=== PATIENT | female | born 1980 | race Caucasian/White ===

== ENCOUNTER → 2020-09-15 13:53 | Outpatient (CLI) | payer MEDICAID, SELFPAY ==
[2020-09-15 15:04] LABS: Absolute Lymphocyte Count 2.62 X10^3/uL (0.83-4.51); Absolute Neutrophil Count 4.5 X10^3/uL (2.0-7.7); Basophil# 0.06 X10^3/uL; Basophil% 0.7 % (0-1); Eosinophil# 0.26 X10^3/uL; Eosinophils% 3.1 % (0-5); Hematocrit 32.8 % (37-47); Hemoglobin 10.2 g/dL (12.0-15.0); Lymphocyte # 2.62 X10^3/ul (4.0); Lymphocyte % 31.4 % (19-41); Mean Corp Hgb Conc 31.1 g/dL (32-36); Mean Corpuscular Hgb 27.6 pg (27.0-32.0); Mean Corpuscular Volume 88.9 fL (81-99); Mean Platelet Vol. 9.3 fl (6.2-12.0); Monocyte# 0.83 X10^3/uL; NRBC Flagged by Analyzer 0 % (0-5); Neutrophil # 4.53 X10^3/uL (2.7-7.7); Neutrophil % 54.3 % (47-70); Platelet Count 423 K/mm3 (150-450); RBC Distribution Width CV 14.6 % (11.6-14.6); Red Blood Count 3.69 M/mm3 (4.2-5.4); White Blood Count 8.3 K/mm3 (4.4-11.0)
[2020-09-15 15:15] LABS: Creatinine, Serum 0.81 mg/dL (0.55-1.02); EST Glomerular Filtration Rate 83 mL/min (>60); Est Glom Filt Rate - Afr Amer 101 mL/min (>60)
== END ==
PROVIDERS: PCP Otolaryngology
DX: G06.0 Intracranial abscess and granuloma (principal); Z45.2 Encounter for adjustment and management of vascular access device
CPT/HCPCS: 36592; 82565; 85025; A4216

== ENCOUNTER → 2020-09-22 14:00 | Outpatient (CLI) | payer MEDICAID, SELFPAY ==
[2020-09-22 15:24] LABS: Absolute Lymphocyte Count 1.95 X10^3/uL (0.83-4.51); Basophil# 0.05 X10^3/uL; Basophil% 0.9 % (0-1); Eosinophil# 0.17 X10^3/uL; Hematocrit 31.8 % (37-47); Hemoglobin 9.5 g/dL (12.0-15.0); Lymphocyte # 1.95 X10^3/ul (4.0); Lymphocyte % 34.2 % (19-41); Mean Corp Hgb Conc 29.9 g/dL (32-36); Mean Corpuscular Hgb 26.4 pg (27.0-32.0); Mean Corpuscular Volume 88.3 fL (81-99); Monocyte# 0.51 X10^3/uL; Monocyte% 8.9 % (0-10); NRBC Flagged by Analyzer 0 % (0-5); Neutrophil # 3.01 X10^3/uL (2.7-7.7); Neutrophil % 52.8 % (47-70); Platelet Count 393 K/mm3 (150-450); RBC Distribution Width CV 14.5 % (11.6-14.6); RBC Distribution Width SD 46.5 fl (35.1-43.9); White Blood Count 5.7 K/mm3 (4.4-11.0)
[2020-09-22 15:34] LABS: Creatinine, Serum 0.95 mg/dL (0.55-1.02); EST Glomerular Filtration Rate 69 mL/min (>60); Est Glom Filt Rate - Afr Amer 83 mL/min (>60)
[2020-09-22 23:16] LABS: Xtra Tube EP Lab EXTRA TUBE
== END ==
PROVIDERS: PCP Otolaryngology
DX: Z45.2 Encounter for adjustment and management of vascular access device (principal); G06.0 Intracranial abscess and granuloma
CPT/HCPCS: 36592; 82565; 85025; A4216

== ENCOUNTER → 2020-09-29 13:44 | Outpatient (CLI) | payer MEDICAID, SELFPAY ==
[2020-09-29 14:30] LABS: Absolute Lymphocyte Count 2.23 X10^3/uL (0.83-4.51); Absolute Neutrophil Count 2.6 X10^3/uL (2.0-7.7); Basophil# 0.03 X10^3/uL; Basophil% 0.5 % (0-1); Eosinophil# 0.29 X10^3/uL; Hematocrit 32.7 % (37-47); Hemoglobin 9.9 g/dL (12.0-15.0); Lymphocyte # 2.23 X10^3/ul (4.0); Lymphocyte % 38.8 % (19-41); Mean Corp Hgb Conc 30.3 g/dL (32-36); Mean Corpuscular Hgb 26.6 pg (27.0-32.0); Mean Corpuscular Volume 87.9 fL (81-99); Mean Platelet Vol. 9.3 fl (6.2-12.0); Monocyte# 0.58 X10^3/uL; Monocyte% 10.1 % (0-10); NRBC Flagged by Analyzer 0 % (0-5); Neutrophil % 45.3 % (47-70); Platelet Count 286 K/mm3 (150-450); RBC Distribution Width CV 15.1 % (11.6-14.6); RBC Distribution Width SD 47.9 fl (35.1-43.9); Red Blood Count 3.72 M/mm3 (4.2-5.4); White Blood Count 5.8 K/mm3 (4.4-11.0)
[2020-09-29 14:50] LABS: Creatinine, Serum 0.83 mg/dL (0.55-1.02); EST Glomerular Filtration Rate 81 mL/min (>60); Est Glom Filt Rate - Afr Amer 98 mL/min (>60)
== END ==
PROVIDERS: PCP Otolaryngology
DX: Z45.2 Encounter for adjustment and management of vascular access device (principal); G06.0 Intracranial abscess and granuloma
CPT/HCPCS: 36592; 82565; 85025; A4216

== ENCOUNTER → 2020-10-06 13:58 | Outpatient (CLI) | payer MEDICAID, SELFPAY ==
[2020-10-06 14:34] LABS: Absolute Lymphocyte Count 2.29 X10^3/uL (0.83-4.51); Absolute Neutrophil Count 3.3 X10^3/uL (2.0-7.7); Basophil# 0.03 X10^3/uL; Basophil% 0.5 % (0-1); Eosinophil# 0.26 X10^3/uL; Hematocrit 33.8 % (37-47); Lymphocyte # 2.29 X10^3/ul (4.0); Lymphocyte % 34.9 % (19-41); Mean Corp Hgb Conc 29.6 g/dL (32-36); Mean Corpuscular Hgb 25.6 pg (27.0-32.0); Mean Corpuscular Volume 86.7 fL (81-99); Mean Platelet Vol. 9.4 fl (6.2-12.0); Monocyte# 0.61 X10^3/uL; Monocyte% 9.3 % (0-10); NRBC Flagged by Analyzer 0 % (0-5); Neutrophil # 3.34 X10^3/uL (2.7-7.7); Neutrophil % 50.8 % (47-70); Platelet Count 316 K/mm3 (150-450); RBC Distribution Width CV 15.1 % (11.6-14.6); White Blood Count 6.6 K/mm3 (4.4-11.0)
[2020-10-06 14:46] LABS: Creatinine, Serum 0.88 mg/dL (0.55-1.02); EST Glomerular Filtration Rate 76 mL/min (>60); Est Glom Filt Rate - Afr Amer 92 mL/min (>60)
[2020-10-06 22:31] LABS: Xtra Tube EP Lab EXTRA TUBE
== END ==
PROVIDERS: PCP Otolaryngology
DX: Z45.2 Encounter for adjustment and management of vascular access device (principal); G06.0 Intracranial abscess and granuloma
CPT/HCPCS: 36592; 82565; 85025; A4216

== ENCOUNTER → 2020-10-13 14:04 | Outpatient (CLI) | payer MEDICAID, SELFPAY ==
[2020-10-13 14:37] LABS: Absolute Lymphocyte Count 2.42 X10^3/uL (0.83-4.51); Absolute Neutrophil Count 4.1 X10^3/uL (2.0-7.7); Basophil# 0.04 X10^3/uL; Basophil% 0.5 % (0-1); Eosinophil# 0.16 X10^3/uL; Eosinophils% 2.2 % (0-5); Hematocrit 33.7 % (37-47); Hemoglobin 10.1 g/dL (12.0-15.0); Lymphocyte # 2.42 X10^3/ul (4.0); Lymphocyte % 33.1 % (19-41); Mean Corpuscular Hgb 25.6 pg (27.0-32.0); Mean Corpuscular Volume 85.3 fL (81-99); Mean Platelet Vol. 9.2 fl (6.2-12.0); Monocyte# 0.56 X10^3/uL; Monocyte% 7.7 % (0-10); NRBC Flagged by Analyzer 0 % (0-5); Neutrophil # 4.12 X10^3/uL (2.7-7.7); Neutrophil % 56.4 % (47-70); Platelet Count 388 K/mm3 (150-450); RBC Distribution Width CV 15.1 % (11.6-14.6); Red Blood Count 3.95 M/mm3 (4.2-5.4); White Blood Count 7.3 K/mm3 (4.4-11.0)
[2020-10-13 14:48] LABS: Creatinine, Serum 0.78 mg/dL (0.55-1.02); EST Glomerular Filtration Rate 87 mL/min (>60); Est Glom Filt Rate - Afr Amer 105 mL/min (>60)
[2020-10-13 22:31] LABS: Xtra Tube EP Lab EXTRA TUBE
== END ==
PROVIDERS: PCP Otolaryngology
DX: Z45.2 Encounter for adjustment and management of vascular access device (principal); G06.0 Intracranial abscess and granuloma
CPT/HCPCS: 36592; 82565; 85025; A4216

== ENCOUNTER 2022-03-18 10:42 | Emergency (ER) | payer MEDICAID, SELFPAY ==
[2022-03-18 10:44] VITALS: BP 163/98; PULSE 79; RESP 14; TEMP 36.4; O2SAT 97; BMI 44.9
--- NOTE | 2022-03-18 11:28 | EX.ED.DYSGE1 ---
HPI <RUSSEL Mays - Last Filed: 03/18/22 11:40> History of Present Illness Chief Complaint: Abscess Narrative Narrative: 41-year-old female with history of aneurysm, brain surgery with complications of the surgery secondary to allergic reaction to her scalp. Patient now has a missing area to her left scalp, she states that she has had no issues for the last year and a half. Patient states that she did develop an abscess over the last several days, she went to [facility] in [place], she states she was post have surgery however it the abscess began draining and then due to them not doing anything, she states that she left AGAINST MEDICAL ADVICE. Patient was not placed on any antibiotic, she states that there was some bleeding this morning and she is here for reevaluation. Patient has all of her neurological care at [facility], however she no longer wants to go to [facility] in [place]. Patient denies any fevers chills nausea or vomiting. PFSH <RUSSEL Mays - Last Filed: 03/18/22 11:40> PFSH Medical History (Updated 03/18/22 @ 11:37 by RUSSEL Mays) Brain aneurysm Home Medications cephalexin 500 mg PO Q6 #40 cap 03/18/22 [Rx Last Taken Unknown] clindamycin-benzoyl peroxide 1 applic TOPICAL BID 03/18/22 [History Last Taken Unknown] doxycycline hyclate 100 mg PO BID 03/18/22 [History Last Taken Unknown] sulfamethoxazole-trimethoprim [Bactrim DS] 1 tab PO BID #20 tab 03/18/22 [Rx Last Taken Unknown] Allergy/AdvReac Type Severity Reaction Status Date / Time shellfish derived Allergy Severe Anaphylaxis Verified 03/18/22 10:48 contact metal agent Allergy Other Verified 03/18/22 10:48 morphine Allergy PT UNSURE Verified 03/18/22 10:48 OF REACTION Surgical History (Updated 03/18/22 @ 11:11 by Brijesh Desai RN) H/O brain surgery Social History Smoking Status: Current every day smoker tobacco type: cigarettes ROS <RUSSEL Mays - Last Filed: 03/18/22 11:40> ROS ED ROS Narrative Constitutional: Negative for fever, chills, weight loss, weakness Eyes: Negative for vision loss, vision change, double vision ENT: Negative for any sore throat, ear pain, congestion Cardiovascular: Negative for any chest pain, tightness, palpitations Respiratory: Negative for any cough, sputum production, hemoptysis, dyspnea, dyspnea on exertion, orthopnea Gastrointestinal: Negative for any abdominal pain, nausea, vomiting, diarrhea, constipation, blood in stool, blood in vomit : Negative for any urinary frequency, dysuria, retention, blood in urine Muscle skeletal: Negative for any muscle joint pain, stiffness, myalgias, arthralgias, neck pain, back pain Neurological: Negative for any headache, syncope, numbness or tingling, dizziness Skin: Negative for any rashes, lumps, itching, abrasions, lacerations. Patient does have a red babita to the left scalp, she states that there is an abscess here with drainage. Psychiatric: Negative for any depression, anxiety, stress, suicidal ideation, homicidal ideation Hematologic: Negative for any easy bruising, excessive bruising, easy bleeding Allergies: Negative for any eczema, hives, rash EXAM <RUSSEL Mays - Last Filed: 03/18/22 11:40> Physical Exam Narrative Exam Narrative: Vital signs reviewed. HEET: Head normocephalic atraumatic, TMs clear bilaterally. Posterior pharynx is clear, moist mucous membranes. Nares clear bilaterally. Scalp does show a small red babita to the left parietal area. There is soft tissue here secondary to multiple skull surgeries, there is no longer a skull present. The area that is small and red shows no sign of drainage, there is minimal signs of any cellulitis, deep tissue infection. There is no fluctuance. I am able to touch the area with minimal tenderness. There seems to be no sign or symptom of infection noted on exam. No drainage. No foul-smelling odor. Neck: Supple with no lymphadenopathy or tenderness. No signs of meningismus, negative jolt sign. Cardiac: Regular rate and rhythm no murmurs gallops or rubs, equal peripheral pulses bilaterally. Respiratory: Lungs clear to auscultation bilaterally. No chest tenderness. Abdomen: Soft, nontender, nondistended. No abdominal bruit or pulsatile masses. No hepatosplenomegaly Extremities: No peripheral edema, no signs of gross trauma or deformity. Active full range of motion of all extremities. Neuro: Cranial nerves II through XII intact, no focal neurological deficits. Skin: Clean dry and intact with no rash, purpura, petechiae, vesicles or pustules. Backs/flank: No CVA tenderness, no midline spinal tenderness, no deformity. Psych: Normal mood and affect. No SI, HI or acute psychosis. Const Vital Signs: 03/18/22 10:44 Temperature 97.6 F L Temperature Source Temporal Pulse Rate 79 Respiratory Rate 14 Blood Pressure 163/98 H Blood Pressure Mean 119 Pulse Ox 97 Oxygen Delivery Method Room Air Positive well nourished and well developed General Appearance ED: well developed <Dr. Dario Duenas MD - Last Filed: 03/18/22 12:04> Physical Exam Const Vital Signs: 03/18/22 10:44 Temperature 97.6 F L Temperature Source Temporal Pulse Rate 79 Respiratory Rate 14 Blood Pressure 163/98 H Blood Pressure Mean 119 Pulse Ox 97 Oxygen Delivery Method Room Air MDM <RUSSEL Mays - Last Filed: 03/18/22 11:40> [facility] Narrative Medical decision making narrative: Patient appears well, patient appears nontoxic, vital signs are stable. Patient presents to the emergency department with complaints of a possible abscess to the left scalp area from past surgeries multiple years ago. Physical examination did not show any deep tissue infection, showed no signs or symptoms of cellulitis. However due to the patient's history of infection in this area, there being minimal skull coverage, the patient replaced on Bactrim, Keflex for 10 days. She will follow-up closely with her neurologist at [facility]. She is also instructed to return to [facility] if any other issues arise. She also asked to have an [facility] referral given for history of ovarian cyst. I will provide her with this. Patient given strict return precautions to return for any redness, fever chills nausea vomiting. Patient stable for discharge. Patient be diagnosed with wound infection secondary to history of prior surgery. <Dr. Dario Duenas MD - Last Filed: 03/18/22 12:04> [facility] Narrative Medical decision making narrative: I have personally performed a face to face assessment of the patient and have reviewed the VIVIANE Note. I performed a substantive portion of the visit including all aspects of the following. My adam findings include: History is that the patient had abscess or infection in the left side of her skull. This occurred about 2 days ago. She was seen at [facility] and transferred up to [facility]. They were planning to do incision and drainage at the bedside and then it spontaneously drained so they decided not to. She states that they were not going to send her home on any antibiotics or medicines. So she left AMA. She is not having headache or neurologic symptoms. The swelling has not really occurred. She just left the hospital here earlier. The symptoms just started 2 days ago. Her last cranial surgery was in 2019 with removal of plate. She has had reactions to the plates that have been tried. Exam shows a small area of erythema only about a centimeter or so around on the left side of the skull. The area is soft because of no underlying skull but there is no sign of abscess. Is actually much less involved than I was expecting from her story. Patient overall is nontoxic. Medical Decison Making: Patient really does not want work-up. She states she is already had a CAT scan. She has seen the neurosurgeons. She just wants to get antibiotics to avoid infection. I am limited on what I can do by patient choice. I do think it is reasonable to give her antibiotics. Her story is that she had spontaneously drained abscess. Although there is only a small amount of erythema I think the proximity to her brain and skull all would necessitate caution and use of antibiotics. We also encouraged follow-up with her physicians. Whether she goes to [facility] or [facility] is her choice. She states she will not go back to [facility]. Discharge Plan Triage Chief Complaint: Abscess ED Midlevel Provider: Shade Jones ED Provider: Dario Duenas Dx/Rx/DC Orders Clinical Impression: Postoperative wound infection Instructions: Wound Infection Tx, Preventing Surgical Site Infections Prescriptions: New sulfamethoxazole-trimethoprim [Bactrim DS] 800-160 mg tablet 1 tab PO BID Qty: 20 RF: 0 cephalexin 500 mg capsule 500 mg PO Q6 Qty: 40 RF: 0 No Action clindamycin-benzoyl peroxide 1-5 % gel 1 applic TOPICAL BID RF: 0 doxycycline hyclate 100 mg tablet 100 mg PO BID RF: 0 Stand Alone Forms: ED Work / School Excuse Primary Care Provider: Care Physician,No Primary Referrals: Marlee Moe MD [STAFF PHYSICIAN] - Care Physician,No Primary [Primary Care Provider] - Activity Restrictions/Additional Instructions: You were referred to [facility] as requested. Please follow-up with your neurologist at [facility] [id number] Language: Angolan Disposition Disposition: Home, Self Care Discharge Date/Time: 03/18/22 11:43
== END 2022-03-18 11:43 | disposition home or self-care (01) ==
PROVIDERS: Emergency Provider Emergency Medicine; Visit Provider Emergency Medicine
DX: T81.49XA Infection following a procedure, other surgical site, initial encounter (principal); F17.210 Nicotine dependence, cigarettes, uncomplicated; Y83.8 Other surgical procedures as the cause of abnormal reaction of the patient, or of later complication, without mention of misadventure at the time of the procedure
CPT/HCPCS: 99282